=== PATIENT | female | born 1990 | race Caucasian/White ===

== ENCOUNTER 2018-03-18 08:37 | Inpatient (IN) | payer BC, OTHER ==
[2018-03-18] VITALS (43 sets, daily range): BP systolic 100–153; BP diastolic 53–82; PULSE 60–134; TEMP 98.2–99.5
[~2018-03-18] VITALS: Ht 160 cm; Wt 83.2 kg
[2018-03-18] MEDS ORDERED: PRENATAL (08:57)
[2018-03-18 10:07] LABS: BASO % 0.1 % (0.0-2.0); EOS # 0.3 (0.0-0.7); EOS % 1.9 % (0-4.0); GRAN # 13.4 (1.4-6.5); GRAN % 82.5 % (42.2-75.2); HEMATOCRIT 34.2 % (37.0-47.0); LYMPH # 1.7 (1.2-3.4); LYMPH % 10.8 % (20.0-51.0); MEAN CELL VOLUME 83 fl (80.0-100.0); MEAN CORPUSCULAR HEMOGLOBIN 29 pg (27.0-31.0); MEAN CORPUSCULAR HGB CONC 35 g/dl (33.0-37.0); MONO # 0.6 (0.1-0.6); MONO % 3.9 % (1.7-9.3); PLATELET COUNT 205 K/mm3 (130-400); RED BLOOD COUNT 4.11 M/mm3 (4.10-5.30); REDCELL DISTRIBUTION WIDTH-CV 13.4 % (11.5-14.5)
[2018-03-19 03:00] VITALS: BP 105/61; PULSE 88; TEMP 98
[2018-03-19] MEDS ORDERED: MOTRIN 800800 MG/TAB PO ×2 (07:54→07:56)
[2018-03-19] MEDS ORDERED: PERCOCET 325 MG1 TA2 PO ×2 (07:54→07:56)
[2018-03-19 08:40] VITALS: BP 106/63; PULSE 99; TEMP 98.3
[2018-03-19 12:30] VITALS: BP 113/65; PULSE 67; TEMP 98.2
[2018-03-19 16:15] VITALS: BP 132/62; PULSE 84; TEMP 97.7
[2018-03-19 20:30] VITALS: BP 110/61; PULSE 82; TEMP 98.3
[2018-03-20 06:51] VITALS: BP 112/66; PULSE 73; TEMP 98.7
== END 2018-03-20 11:30 | disposition home or self-care (01) | DRG 775 ==
LOC: LDRO 08:37 → OB 09:37 → LDR 09:37 → OB 20:15
PROVIDERS: Obstetrics & Gynecology
PROC: 10D07Z6 Extraction of Products of Conception, Vacuum, Via Natural or Artificial Opening (ICD-10-PCS; principal; 2018-03-18)
PROC: 0KQM0ZZ Repair Perineum Muscle, Open Approach (ICD-10-PCS; 2018-03-18)
DX: O76 Abnormality in fetal heart rate and rhythm complicating labor and delivery (principal); Z3A.38 38 weeks gestation of pregnancy; Z37.0 Single live birth; O70.1 Second degree perineal laceration during delivery; O77.0 Labor and delivery complicated by meconium in amniotic fluid
CPT/HCPCS: J2405; J2590; J2795; J7120

== ENCOUNTER 2019-12-29 11:49 | Outpatient (CLI) | payer BC ==
[~2019-12-29] VITALS: Ht 160 cm; Wt 85.5 kg
[~2019-12-29 11:49] MED LIST: MOTRIN 800800 MG/TAB PO; PERCOCET 325 MG1 TA2 PO; PRENATAL
--- NOTE | 2019-12-29 11:55 | NUR ---
Patient ambulatory to LR4 with spouse, changed into gown, FHR/TOCO monitors placed. Patient states she started tori this morning. Denies any leaking of fluid/vaginal bleeding/decreased movement. Plan of care discussed. 1156: TATYANA Oswald RN- /-3 Assessment completed and plan of care discussed.
--- NOTE | 2019-12-29 12:10 | NUR ---
Margret RN calls Dr. Mcnamara to update on patient. Dr. Norman order for a 20 minute FHR strip and patient can go home. See physician notification. 1235: Patient does not feel any different and contractions are not as strong, does not feel like she needs checked again. Patient off monitor to change. Dishcarge instructions given and patient verbalizes understanding. 1245: Patient ambulates off unit with spouse
[2019-12-29 12:15] VITALS: TEMP 98
[2019-12-29 12:35] VITALS: BP 117/66; PULSE 118
== END 2019-12-29 12:45 | disposition home or self-care (01) ==
LOC: LDRO 11:49
DX: O62.9 Abnormality of forces of labor, unspecified (principal); Z3A.38 38 weeks gestation of pregnancy

== ENCOUNTER 2020-01-07 06:04 | Inpatient (IN) | payer BC ==
[2020-01-07] VITALS (30 sets, daily range): BP systolic 101–131; BP diastolic 56–79; PULSE 68–92; TEMP 98–98.4
[~2020-01-07] VITALS: Ht 160 cm; Wt 86.4 kg
--- NOTE | 2020-01-07 06:00 | NUR ---
0600 G2L1 39.2 WEEK GEST TO LR4 WITH C/O CONTRACTIONS STARTING LAST NIGHT AT 2345. EFM ON. SVE /-3 WITH BALLOTABLE PRESENTING PART.
[2020-01-07] MEDS ORDERED: PRENATAL TABLET PO (06:17)
--- NOTE | 2020-01-07 06:30 | NUR ---
Patient here in labor room four. Assessment done, questions asked and offered. Oriented to room.
--- NOTE | 2020-01-07 07:30 | NUR ---
Rests in bed, alert. 0740 Iv start to left hand, fluids of lactated ringers started.
--- NOTE | 2020-01-07 07:45 | NUR ---
Rests in bed, alert. Pen g 5 million units iv started as ordered and per protocol. Pitocin 2 marily units iv started as ordered and per protocol.
[2020-01-07 07:54] LABS: BASO % 0.2 % (0.0-2.0); EOS # 0.2 (0.0-0.7); EOS % 1.8 % (0-4.0); GRAN # 10.3 (1.4-6.5); GRAN % 80.6 % (42.2-75.2); HEMOGLOBIN 12.1 g/dl (12.5-16.0); LYMPH # 1.7 (1.2-3.4); LYMPH % 12.9 % (20.0-51.0); MEAN CELL VOLUME 84 fl (80.0-100.0); MEAN CORPUSCULAR HEMOGLOBIN 29 pg (27.0-31.0); MEAN CORPUSCULAR HGB CONC 34 g/dl (33.0-37.0); MEAN PLATELET VOLUME 11.3 fl (7.4-10.4); MONO # 0.5 (0.1-0.6); MONO % 3.9 % (1.7-9.3); PLATELET COUNT 235 K/mm3 (130-400); RED BLOOD COUNT 4.24 M/mm3 (4.10-5.30); REDCELL DISTRIBUTION WIDTH-CV 14.4 % (11.5-14.5)
--- NOTE | 2020-01-07 08:00 | NUR ---
Dr. Norman here, arom done. Large amount of clear fluid noted. Pad changed, bright-care given.
[2020-01-07 08:06] LABS: HEMATOCRIT 35.4 % (37.0-47.0)
--- NOTE | 2020-01-07 08:45 | NUR ---
Request epidural. Fluids of lactated ringers infusing bolus for epidural. 0855 Anesthesia here, visits with family. 0906 Space obtained by anesthesia Kaylah de la fuente. 0907 Test dose given by anesthesia. See anesthesia notes please.
--- NOTE | 2020-01-07 09:30 | NUR ---
Rests in bed, alert. States feeling better. Denies any discomfort or pain.
--- NOTE | 2020-01-07 11:00 | NUR ---
Rests in bed, alert. Repositioned to left side. Denies any discomfort or needs at this time.
--- NOTE | 2020-01-07 11:30 | NUR ---
Pen g 2.5 million units iv given as ordered and per protocol.
--- NOTE | 2020-01-07 12:05 | NUR ---
Dr. Norman here, reports patient complete. Prepped for delivery. 1217 Spontaneous delivery of baby girl by Dr. Norman. 1219 Spontaneous delivery of placenta by Dr. norman. Pitocin infusing at 333ccs as ordered and per protocol.
--- NOTE | 2020-01-07 12:30 | NUR ---
Rests in bed, alert. Repair work done by Dr. Norman.
--- NOTE | 2020-01-07 12:45 | NUR ---
Rests in bed, alert. Holds baby skin to skin lovingly. Denies any needs at this time.
--- NOTE | 2020-01-07 13:15 | NUR ---
Eating meal, denies any needs at this time.
--- NOTE | 2020-01-07 13:45 | NUR ---
Rests in bed, alert. Benadryl given per request and as ordered for feeling itchy.
--- NOTE | 2020-01-07 15:00 | NUR ---
Ambulates to the bathroom. Voids moderate amount of clear yellow urine. Yary-care shown and done by patient. To room 218 via wheel chair. Oriented to room. Denies any needs at this time.
--- NOTE | 2020-01-07 16:15 | NUR ---
Rests in bed, alert. Denies any pain or discomfort at this time.
[2020-01-08 08:00] VITALS: BP 108/72; PULSE 77; TEMP 97.7
[2020-01-08] MEDS ORDERED: PERCOCET 325 MG1 TA2 PO (08:43)
[2020-01-08] MEDS ORDERED: MOTRIN 800800 MG/TAB PO (08:43)
[2020-01-08 12:00] VITALS: BP 112/67; PULSE 77; TEMP 98.5
[2020-01-08 20:30] VITALS: BP 112/59; PULSE 81; TEMP 98.1
[2020-01-09 09:32] VITALS: BP 105/77; PULSE 74; TEMP 98
--- NOTE | 2020-01-09 12:30 | NUR ---
Discharge instructions given, pt verbalizes understanding. No further questions noted. Bands matched and hugs tag removed.
== END 2020-01-09 12:30 | disposition home or self-care (01) | DRG 807 ==
LOC: LDRO 06:04 → LDR 06:06 → LDRO 06:59 → LDR 07:00 → OB 15:37
PROVIDERS: ADMIT Obstetrics & Gynecology
PROC: 10E0XZZ Delivery of Products of Conception, External Approach (ICD-10-PCS; principal; 2020-01-07)
PROC: 0HQ9XZZ Repair Perineum Skin, External Approach (ICD-10-PCS; 2020-01-07)
PROC: 0UQMXZZ Repair Vulva, External Approach (ICD-10-PCS; 2020-01-07)
DX: O69.1XX0 Labor and delivery complicated by cord around neck, with compression, not applicable or unspecified (principal); Z37.0 Single live birth; O99.62 Diseases of the digestive system complicating childbirth; K21.9 Gastro-esophageal reflux disease without esophagitis; O70.0 First degree perineal laceration during delivery; O71.82 Other specified trauma to perineum and vulva; Z3A.39 39 weeks gestation of pregnancy
CPT/HCPCS: J2540; J2590; J7120